=== PATIENT | female | born 1955 | race Caucasian/White ===

== ENCOUNTER 2019-04-19 09:44 | Inpatient (IN) | payer BC ==
[2019-04-19] MEDS ORDERED: HYDROcodone/Acetaminophen 5/325 mg Tablet PO PRN ×2 (12:26)
[2019-04-19] MEDS ORDERED: Acetaminophen 325 MG TAB PO PRN (12:26)
[2019-04-19] MEDS ORDERED: Ondansetron ODT 4 MG TAB SL PRN (12:26)
[2019-04-19] MEDS ORDERED: Ondansetron PF 4 MG/2 ML Vial IVP PRN (12:26)
[2019-04-19] MEDS ORDERED: Labetalol HCl 100 MG/20 ML VIAL SLOW IVP PRN ×2 (13:01→14:16)
[2019-04-19] MEDS: Sodium Chloride 0.9% 1,000 ML IV SCH ×2 (13:04→20:02)
[2019-04-19 13:10] VITALS: BMI 26.3
[2019-04-19 13:37] LABS: #Basophils 0.1 thou/uL (0.0-0.2); #Eosinphils 0.1 thou/uL (0.0-0.7); #Lymphocytes 2.2 thou/uL (1.20-3.40); #Monocytes 0.3 thou/uL (0.11-0.59); #Neutrophils 3.8 thou/uL (1.40-6.50); %Basophils 1.3 % (0.0-1.0); %Eosinophils 1.1 % (0.0-10.0); %Monocytes 5.2 % (0.0-10.0); %Neutrophils 58.4 % (42.0-75.0); Hemoglobin 14.1 g/dL (12.0-16.0); Mean Corpuscular HGB CONC 33.2 g/dL (32.0-36.0); Mean Corpuscular Hemoglobin 30.2 pg (27.0-31.0); Mean Platelet Volume 8.4 fL (7.4-10.4); Platelet Count 311 thou/uL (130-400); RBC Distribution Width 12.3 % (11.5-14.5); Red Blood Cell (RBC) Count 4.67 mill/uL (4.20-5.40); White Blood Cell (WBC) Count 6.5 thou/uL (4.8-10.8)
[2019-04-19 14:03] LABS: Anion Gap 11 mmol/L (10-20); BUN (Urea Nitrogen) 14 mg/dL (9.8-20.1); CRP (Inflammatory) 2.18 mg/dL (= or < 0.5); Calc. Creatinine Clearance 93 mL/min (70-130); Calcium 9.6 mg/dL (7.8-10.44); Carbon Dioxide 29 mmol/L (23-31); Chloride 106 mmol/L (98-107); Estimated GFR-MDRD 82; Glucose 93 mg/dL (80-115); Potassium 3.3 mmol/L (3.5-5.1); Sodium 143 mmol/L (136-145)
[2019-04-19] MEDS ORDERED: hydrALAZINE 20 MG/ML VIAL SLOW IVP PRN (14:16)
[2019-04-19] MEDS ORDERED: cloNIDine 0.1 MG TAB PO PRN ×2 (14:16→21:06)
[2019-04-19] MEDS ORDERED: Dextrose 50% Abboject 50 ML SYRINGE SLOW IVP PRN (14:17)
[2019-04-19] MEDS ORDERED: Dextrose 5% in Water 1,000 ML IV PRN (14:17)
[2019-04-19] MEDS ORDERED: HumaLOG 300 UNITS/3 ML VIAL SC PRN ×2 (14:17)
[2019-04-19] MEDS ORDERED: Lidocaine 1% PF 5 ML VIAL ONE (14:25)
[2019-04-19] MEDS ORDERED: PROPOFOL 200 MG/20 ML VIAL ONE (14:25)
[2019-04-19] MEDS ORDERED: EPHEDRINE 25 MG/5 ML SYRINGE ONE (14:25)
[2019-04-19] MEDS ORDERED: Dexamethasone 20 MG/5 ML VIAL ONE (14:25)
[2019-04-19] MEDS ORDERED: Ondansetron PF 4 MG/2 ML Vial ONE (14:25)
[2019-04-19] MEDS ORDERED: Vancomycin HCl 1.25 GM in Sodium Chloride 0.9% 250 ML 250 ML IVPB SCH (14:30)
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
[2019-04-19] MEDS ORDERED: Thrombin 5000 UNITS/5 ML VIAL ONE (16:59)
[2019-04-19] MEDS ORDERED: Sodium Chloride 0.9% 10 ML ONE (16:59)
[2019-04-19] MEDS ORDERED: Bupivacaine PF 0.5% 30 ML VIAL ONE (16:59)
[2019-04-19] MEDS ORDERED: Bacitracin Zinc Ointment 30 gm TUBE ONE (16:59)
[2019-04-19] MEDS ORDERED: Sodium Chloride 0.9% 20 ML ONE (17:00)
[2019-04-19] MEDS ORDERED: Fentanyl 100 MCG/2 ML VIAL ONE (17:21)
[2019-04-19] MEDS ORDERED: Promethazine HCl 25 MG/ML VIAL IM PRN ×2 (18:42→18:52)
[2019-04-19] MEDS ORDERED: Ondansetron PF 4 MG/2 ML Vial IV PRN (18:52)
[2019-04-19] MEDS ORDERED: Fentanyl 100 MCG/2 ML VIAL SLOW IVP PRN (18:52)
[2019-04-19] MEDS ORDERED: Milk Of Magnesia 30 ML UDCUP PO PRN (18:52)
[2019-04-19] MEDS ORDERED: Bisacodyl 10 MG SUPP PR PRN (18:52)
[2019-04-19] MEDS ORDERED: Meperidine HCl/PF 25 MG/ML VIAL IM PRN (18:58)
[2019-04-19] MEDS ORDERED: Communication Order-Pharmacy FS SCH (19:00)
[2019-04-19] MEDS: Acetaminophen/Codeine 30-300mg Tablet PO PRN (20:02)
[2019-04-19] MEDS: Aspirin 81 mg Enteric Coated Tablet PO SCH (20:02)
[2019-04-19] MEDS ORDERED: TETANUS AND DIPHTHERIA TOX/PF 0.5 ML DISP.SYRIN IM SCH (21:00)
[2019-04-19] MEDS ORDERED: diphenhydrAMINE 25 MG CAP PO PRN (21:06)
[2019-04-19 21:41] LABS: #Lymphocytes 0.7 thou/uL (1.20-3.40); #Monocytes 0.1 thou/uL (0.11-0.59); #Neutrophils 7.1 thou/uL (1.40-6.50); %Basophils 0.4 % (0.0-1.0); %Eosinophils 0.2 % (0.0-10.0); %Lymphocytes 9.3 % (21.0-51.0); %Monocytes 0.9 % (0.0-10.0); %Neutrophils 89.1 % (42.0-75.0); Hemoglobin 13.3 g/dL (12.0-16.0); Mean Corpuscular HGB CONC 33.5 g/dL (32.0-36.0); Mean Corpuscular Hemoglobin 30.6 pg (27.0-31.0); Mean Corpuscular Volume 91.3 fL (78.0-98.0); Mean Platelet Volume 8.6 fL (7.4-10.4); Platelet Count 271 thou/uL (130-400); RBC Distribution Width 12.3 % (11.5-14.5); Red Blood Cell (RBC) Count 4.34 mill/uL (4.20-5.40)
[2019-04-19] MEDS: Ketorolac Tromethamine 30 MG/ML VIAL IVP SCH (23:41)
[2019-04-20] MEDS: Ketorolac Tromethamine 30 MG/ML VIAL IVP SCH ×4 (05:06→23:47)
[2019-04-20] MEDS: Acetaminophen/Codeine 30-300mg Tablet PO PRN ×3 (05:11→18:19)
[2019-04-20 05:48] LABS: #Lymphocytes 0.9 thou/uL (1.20-3.40); #Monocytes 0.2 thou/uL (0.11-0.59); #Neutrophils 3.5 thou/uL (1.40-6.50); %Basophils 0.6 % (0.0-1.0); %Eosinophils 0.2 % (0.0-10.0); %Lymphocytes 18.6 % (21.0-51.0); %Monocytes 3.7 % (0.0-10.0); Hemoglobin 12.9 g/dL (12.0-16.0); Mean Corpuscular HGB CONC 33.7 g/dL (32.0-36.0); Mean Corpuscular Hemoglobin 30.9 pg (27.0-31.0); Mean Corpuscular Volume 91.8 fL (78.0-98.0); Mean Platelet Volume 8.9 fL (7.4-10.4); Platelet Count 293 thou/uL (130-400); RBC Distribution Width 12.3 % (11.5-14.5); Red Blood Cell (RBC) Count 4.18 mill/uL (4.20-5.40); White Blood Cell (WBC) Count 4.6 thou/uL (4.8-10.8)
[2019-04-20] MEDS ORDERED: Vancomycin HCl 1 GM in Premix Bag 1 BAG IVPB SCH (06:00)
[2019-04-20 06:05] LABS: ALT (SGPT) 30 U/L (8-55); AST (SGOT) 16 U/L (5-34); Albumin 3.9 g/dL (3.4-4.8); Alkaline Phosphatase 62 U/L (40-110); Anion Gap 12 mmol/L (10-20); BUN (Urea Nitrogen) 12 mg/dL (9.8-20.1); Bilirubin, Total 0.4 mg/dL (0.2-1.2); Calc. Creatinine Clearance 97 mL/min (70-130); Calcium 8.7 mg/dL (7.8-10.44); Carbon Dioxide 22 mmol/L (23-31); Chloride 110 mmol/L (98-107); Estimated GFR-MDRD 86; Globulin 2.3 g/dL (2.4-3.5); Glucose 117 mg/dL (80-115); Protein, Total 6.2 g/dL (6.0-8.3); Sodium 140 mmol/L (136-145)
[2019-04-20] MEDS: Aspirin 81 mg Enteric Coated Tablet PO SCH ×2 (07:59→21:19)
--- NOTE | 2019-04-20 08:09 | OP ---
DATE OF PROCEDURE: 04/19/2019 PREOPERATIVE DIAGNOSIS: Left palmar wound with necrosis. POSTOPERATIVE DIAGNOSIS: Left palmar wound with necrosis. PROCEDURE PERFORMED: Debridement of wound, left palm, wide, deep, depth down to include the neurovascular bundle of the ulnar nerve. SPECIMEN: Culture of necrotic wound and swab culture of the wound exudate. FINDINGS: Grossly contaminated wound with undermined and particle contamination. INDICATIONS: The patient with a wound to the right hand. It showed evidence of erythema and gross infection. Also showed marked amount of wound necrosis and debridement to whatever depth and size needed to remove the necrotic tissue was indicated. DESCRIPTION OF PROCEDURE: After successful general endotracheal anesthesia, the limb was prepped and draped. The tourniquet was inflated, which remained so at 250 mmHg pressure after exsanguination of limb for 9 minutes. Incision was extended 1.5 cm distal and 2.5 cm proximally, angling it ulnarly so we could visualize the proximal portion of the ulnar neurovascular bundle. We then followed this across Guyon's canal subcutaneously, extending the incision 2 cm distal and we found gross necrosis, some particle of plant-like fibers in the wound, fat was denuded and there was no gross exudate. We then did the same type of procedure on the radial side of wound from the midportion distally and we found what we suspected and that was gross contamination of wound with early abscess formation. We then peeled the incision proximally and distally back undermining enough so we could visualize everything down to the fascia. We saw along the palmar fascia was not violated on the radial half, but on the ulnar half, it was covered and what appeared to be diminished and we decided to after debridement and irrigation to all. The patient then had gross contaminated tissue been excised, sent for culture as well as a swab and then we irrigated with normal saline and 3 L of Pulsavac pressure. The patient then had a normal saline wet-to-dry packing placed in the wound after we had visualized neurovascular bundle and worked around and saw no gross contamination. She then left the operating room with a normal saline soaked gauze and no evidence of anesthetic or operative complication. Job ID: [id number]
[2019-04-20] MEDS ORDERED: Lisinopril 10 MG TAB PO SCH (09:03)
[2019-04-20] MEDS ORDERED: Amlodipine 10 MG TAB PO SCH (09:04)
[2019-04-20] MEDS: Amlodipine 10 MG TAB PO SCH (09:13)
[2019-04-20] MEDS: Lisinopril 10 MG TAB PO SCH (09:14)
--- NOTE | 2019-04-20 14:07 | PDOC.HOSPP ---
- Subjective Encounter Date: 04/20/19 Encounter Time: 14:05 Subjective: Ms. Dominguez was seen today in follow-up cellulitis of the right hand. She does not have any new complaints. - Objective Vital Signs & Weight: Vital Signs (12 hours) Temp Pulse Resp BP BP Pulse Ox 04/20/19 11:20 96 04/20/19 11:08 97.9 F 88 15 152/76 H 96 04/20/19 09:14 165/80 H 04/20/19 09:13 165/80 H 04/20/19 08:00 182/75 H 95 04/20/19 07:25 97.9 F 75 16 182/75 H 95 04/20/19 04:00 97.7 F 78 18 154/82 H 96 Weight Weight 163 lb 2.273 oz I&O: 04/19/19 04/20/19 04/21/19 06:59 06:59 06:59 Intake Total 1140 Balance 1140 Result Diagrams: 04/20/19 04:58 04/20/19 04:58 Additional Labs: Accuchecks 04/20/19 04/20/19 04/19/19 11:07 05:31 20:05 POC Glucose 88 118 H 110 04/19/19 17:37 POC Glucose 93 Hospitalist ROS - Medication Medications: Active Medications Generic Name Dose Route Start Last Admin Trade Name Freq PRN Reason Stop Dose Admin Acetaminophen/Codeine Phosphate 1 tab 04/19/19 18:52 04/20/19 09:13 Tylenol #3 PO 1 tab Q4H PRN Administration Moderate Pain (4-6) Amlodipine Besylate 10 mg 04/20/19 09:00 04/20/19 09:13 Norvasc PO 10 mg DAILY ZAFAR Administration Aspirin 81 mg 04/19/19 21:00 04/20/19 07:59 Ecotrin PO 81 mg BID ZAFAR Administration Clonidine 0.1 mg 04/19/19 21:06 04/20/19 08:00 Catapres PO 0.1 mg Q4H PRN Administration SBP Greater Than 180 Diphenhydramine HCl 25 mg 04/19/19 21:06 04/19/19 21:18 Benadryl PO 25 mg Q4H PRN Administration Itching Hydralazine HCl 10 mg 04/19/19 14:16 04/19/19 21:16 Apresoline SLOW IVP 10 mg Q4H PRN Administration SBP > 180 and HR < 70 Ketorolac Tromethamine 15 mg 04/19/19 23:59 04/20/19 11:51 Toradol IVP 04/20/19 23:59 15 mg Q6HR ZAFAR Administration Lisinopril 10 mg 04/20/19 09:00 04/20/19 09:14 Zestril PO 10 mg DAILY ZAFAR Administration - Exam Eye: PERRL Eye - other findings: + bruising on the left side of her face Heart: RRR, no murmur, no gallops, no rubs Respiratory: CTAB, no wheezes, no rales, no ronchi, normal chest expansion Gastrointestinal: soft, non-tender, non-distended, normal bowel sounds Extremities: no edema (+ right hand is dressed) Hosp A/P (1) Cellulitis of right hand Code(s): L03.113 - CELLULITIS OF RIGHT UPPER LIMB Status: Acute (2) HTN (hypertension) Code(s): I10 - ESSENTIAL (PRIMARY) HYPERTENSION Status: Chronic (3) Hypertensive urgency Code(s): I16.0 - HYPERTENSIVE URGENCY Status: Resolved - Plan * Hypertensive Urgency- resolved * HTN- blood pressure is better- continue with her home medications * Discussed in great detail the dangers of missing her medications, especially Clonidine ( with regard to rebound hypertension). She voiced understanding, but says that this medication is one of the only ones which helped her blood pressure. * Cellulitis of the right hand- continue antibiotics per Dr. Dickens
[2019-04-21] MEDS: Acetaminophen/Codeine 30-300mg Tablet PO PRN ×3 (06:18→16:58)
[2019-04-21] MEDS: Lisinopril 10 MG TAB PO SCH (08:39)
[2019-04-21] MEDS: Aspirin 81 mg Enteric Coated Tablet PO SCH (08:39)
[2019-04-21] MEDS: Amlodipine 10 MG TAB PO SCH (08:39)
[2019-04-21] MEDS: Morphine 4 MG/ML VIAL SLOW IVP PRN ×2 (08:40→16:59)
[2019-04-21 15:21] VITALS: BP 145/73; TEMP 98.3
--- NOTE | 2019-04-22 10:10 | PQF ---
SAL VILLAVICENCIO DARRYL [id number] [facility] A- [id number] CLINICAL DOCUMENTATION CLARIFICATION FORM: POST DISCHARGE Addendum to original discharge summary date: ____ Late entry note date: __ DATE:04/22/2019 ATTN: OMKAR ARGUELOL Please exercise your independent, professional judgment in responding to the clarification form. Clinical indicators are provided on the bottom of this form for your review Please check appropriate box(s): [ ] Excisional Debridement: [ ] Excised [ ] Cut away [ ] Other: Depth / layer: (deepest layer of debridement): [ ] Skin[ ] SubQ Tissue [ ] Fascia [ ] Muscle [ ] Tendon [ ] Bone Appearance of wound: (e.g., down to fresh bleeding tissue, etc.)___ Margins: (please specify): / x x Instruments used: [ ] Scissors [ ] Scalpel [ ] Curette [ ] Soft tissue clipper [ ] Other: [ ] Non-excisional Debridement: (Removal by flushing, brushing, chemical, or washing) Depth / layer: (deepest layer of debridement): [ ] Skin[ ] Subcutaneous [ ] Fascia [ ] Muscle [ ] Tendon [ ] Bone [ ] Other procedure diagnosis [ ] Unable to determine For continuity of documentation, please document condition throughout progress notes and discharge summary. Thank You. CLINICAL INDICATORS - SIGNS / SYMPTOMS / LABS Procedure performed:Debridement of wound ,eft palm, wide , deep, depth down to include the neurovascular bundle of the ulnar nerve-Documented in Op note on by Omkar Arguello MD Findings:Grossly contaminated wound with undermined and particle contamination- Documented in Op note on 04/19 by Omkar Arguelol MD Extending the incision 2 cm distal and we found gross necrosis -Documented in Op note on 04/19 by Omkar Arguello MD Could visualize everything down to the fascia. we saw alone the palmar fascia was not violated on the radial half , but on the ulna half, It was covered and what appeared to be diminished and we decided to after debridement and irrigation to all-Documented in Op note on 04/19 by Omkar Arguello MD RISK FACTORS Grossly contaminated wound with undermined and particle contamination- Documented in Op note on 04/19 by Omkar Arguello MD TREATMENTS: Irrigated with normal saline and 3 l of Pulsavac pressure -Documented in Op note on 04/19 by Omkar Arguello MD Packing placed in the wound -Documented in Op note on 04/19 by Omkar Arguello MD [employer] Win[employer] Viewer (This form is maintained as a part of the permanent medical record) 2014 [employer]. All Rights Reserved [email or web address] [phone] MTDD
== END 2019-04-21 19:35 | disposition home or self-care (01) | DRG 580 ==
LOC: ERS 09:44 → SURG A 10:00 → OBSVTOIN 18:52
PROVIDERS: ADMIT Orthopaedic Surgery Hand Surgery; ATTEND Orthopaedic Surgery Hand Surgery
PROC: 0JBK0ZZ Excision of Left Hand Subcutaneous Tissue and Fascia, Open Approach (ICD-10-PCS; principal; 2019-04-19)
DX: L03.113 Cellulitis of right upper limb (principal); I96 Gangrene, not elsewhere classified; I10 Essential (primary) hypertension; I16.0 Hypertensive urgency; Z90.49 Acquired absence of other specified parts of digestive tract; Z83.3 Family history of diabetes mellitus; Z82.3 Family history of stroke; Z82.49 Family history of ischemic heart disease and other diseases of the circulatory system
CPT/HCPCS: 12002; 36415; 36416; 70450; 70486; 71045; 78452; 80048; 80053; 80061; 82553; 83735; 83880; 84443; 84484; 85025; 86140; 87070; 87077; 87186; 87205; 93017; 94760; 96361; 96365; 96375; 96376; 99284; A9500; G0378; J0153; J0360; J1100; J1885; J2001; J2270; J2405; J2550; J2704; J3010; J3370; J3490; Q0162; Q0163; S0020

== ENCOUNTER 2019-04-26 12:32 | Day surgery (SDC) | payer BC ==
[~2019-04-26 12:32] MED LIST: Dexamethasone 20 MG/5 ML VIAL ONE; EPHEDRINE 25 MG/5 ML SYRINGE ONE; Ketorolac Tromethamine 30 MG/ML VIAL ONE; Ondansetron PF 4 MG/2 ML Vial ONE; PROPOFOL 200 MG/20 ML VIAL ONE
[2019-04-26] MEDS ORDERED: Sodium Chloride 0.9% 10 ML ONE ×2 (14:16→16:11)
[2019-04-26] MEDS ORDERED: CEFAZOLIN 1 GM VIAL ONE (14:23)
[2019-04-26] MEDS ORDERED: Sodium Chloride 0.9% 100 ML ONE (14:23)
[2019-04-26 15:13] LABS: Mean Corpuscular HGB CONC 33.9 g/dL (32.0-36.0); Mean Corpuscular Hemoglobin 30.9 pg (27.0-31.0); Mean Platelet Volume 8.1 fL (7.4-10.4); Platelet Count 344 thou/uL (130-400); Red Blood Cell (RBC) Count 4.52 mill/uL (4.20-5.40); White Blood Cell (WBC) Count 7.3 thou/uL (4.8-10.8)
[2019-04-26] MEDS ORDERED: Bupivacaine PF 0.5% 30 ML VIAL ONE (16:10)
[2019-04-26] MEDS ORDERED: Thrombin 5000 UNITS/5 ML VIAL ONE (16:11)
[2019-04-26] MEDS ORDERED: Bacitracin Zinc Ointment 30 gm TUBE ONE (16:11)
[2019-04-26] MEDS ORDERED: Fentanyl 100 MCG/2 ML VIAL ONE ×2 (17:22→19:30)
--- NOTE | 2019-04-27 01:18 | OP ---
DATE OF PROCEDURE: 04/26/2019 PREOPERATIVE DIAGNOSES: Right palmar 7 cm wound with 2 cm central defect from soft tissue loss after prior debridement approximately 1 week ago, previously treated with dressing changes, antibiotics and observation after debridement. POSTOPERATIVE DIAGNOSES: Right palmar 7 cm wound with 2 cm central defect from soft tissue loss after prior debridement approximately 1 week ago, previously treated with dressing changes, antibiotics and observation after debridement with total 7 cm wound with 2 cm defect in the central portion. PROCEDURE PERFORMED: 1. Closure of 7 cm wound. 2. 2 x 1 cm full-thickness skin graft from the antecubital fossa, same site. 3. Debridement of wound, right palmar wrist. SPECIMEN REMOVED: None. ESTIMATED BLOOD LOSS: 10 mL. TOURNIQUET TIME: 0. No infection. INDICATION: The patient returned for staged wound management after previous debridement for an infected necrotic wound. She had been on antibiotics appropriate for the cultures and had dressing changes x2 in the office, which last 1 showed no infection. DESCRIPTION OF PROCEDURE: After successful general endotracheal anesthesia, the limb was prepped and draped. We then evaluated the wound without exsanguination of the limb. We debrided the wound edges using tenotomy scissors and Graves blade after looking deep and using the curette to also debride the wound edges. There was no exposure of the neurovascular bundle either the ulnar or median. There was adequate fat for the center portion wound where we once debrided, there was a 2 x 0.8 cm defect. We then irrigated with 1 L of normal saline and Pulsavac pressure with antibiotics inside. We obtained hemostasis. We then closed the wound using a 3-0 suture in a vertical mattress pattern proximal to the open area and 4-0 nylon with a horizontal mattress distal to the 2 cm defect centrally. We then obtained hemostasis. We harvested the full-thickness skin graft, defatted it and then placed it with bolster sutures in all 4 corners of this 2 x 1 cm wound. There was enough slack on the graft to place in the crater against the underlying fat. We then after placing 4 bolster sutures, ran a 5-0 chromic suture around the edges of the graft and then placed bacitracin, Adaptic, mineral-oil soaked gauze and tied this with 2 sutures, 1 in each caudal direction. We had excellent bolster effect. We placed Adaptic and bacitracin in the remainder of the wound, covered this with bulky hand dressing and Kerlix, and then turned attention to the proximal wound. We obtained hemostasis here. We closed the deep dermis with a running four Monocryl, epidermis closure with fibrin glue (Dermabond), and then waited 3 minutes until it dried and covered this with a dry Adaptic, 4x4s and Kerlix were placed here and then we connected the 2 with 4-inch Mayank wrap. The patient left the operating room without evidence of anesthetic operative complication. Job ID: [id number]
--- NOTE | 2019-04-27 15:06 | EKG ---
Test Reason : STAT CP Blood Pressure : / mmHG Vent. Rate : 081 BPM Atrial Rate : 081 BPM P-R Int : 170 ms QRS Dur : 096 ms QT Int : 388 ms P-R-T Axes : 053 016 033 degrees QTc Int : 450 ms Normal sinus rhythm Normal ECG Confirmed by SONIDO TANG ([id number]) on 04/27/2019 3:06:11 PM Referred By: Altagracia ARGUELLO Confirmed By:SONIDO TANG
== END 2019-04-26 22:15 | disposition home or self-care (01) ==
LOC: SDC 12:32
PROVIDERS: ATTEND Orthopaedic Surgery Hand Surgery
PROC: 0HRFX73 Replacement of Right Hand Skin with Autologous Tissue Substitute, Full Thickness, External Approach (ICD-10-PCS; principal; 2019-04-26)
DX: S61.401A Unspecified open wound of right hand, initial encounter (principal); X58.XXXA Exposure to other specified factors, initial encounter
CPT/HCPCS: 85027; 85652; 93005; 93010; J0690; J1100; J1885; J2405; J2704; J3010; J3490; S0020

== ENCOUNTER 2020-01-02 23:01 | Emergency (ER) | payer BC ==
[2020-01-02] MEDS ORDERED: Morphine 4 MG/ML VIAL ONE (23:22)
[2020-01-02] MEDS ORDERED: Lidocaine 1% w/Epinephrine 1:100K 20 ML VIAL ONE (23:25)
--- NOTE | 2020-01-03 06:58 | RAD ---
LEFT KNEE 4 VIEWS: Date: 01/02/2020 HISTORY: Laceration to knee status post fall. FINDINGS: Soft tissue injury is seen. No joint effusion or fracture. No air seen within the joint space. IMPRESSION: No evidence of fracture or joint effusion. POS: OFF
--- NOTE | 2020-01-03 06:59 | RAD ---
RIGHT WRIST 3 VIEWS: Date: 01/02/2020 HISTORY: Wrist injury status post fall. FINDINGS: There are marked arthritic changes of the first carpometacarpal joint space and triscaphe joint level . The bones appear demineralized. There is cystic appearing change within the hamate. There is no faby dence for fracture. IMPRESSION: No evidence of fracture. POS: OFF
== END 2020-01-03 00:29 | disposition home or self-care (01) ==
LOC: ERS 23:01
DX: S81.012A Laceration without foreign body, left knee, initial encounter (principal); M25.531 Pain in right wrist; I10 Essential (primary) hypertension; F32.9 Major depressive disorder, single episode, unspecified; F41.9 Anxiety disorder, unspecified; W01.198A Fall on same level from slipping, tripping and stumbling with subsequent striking against other object, initial encounter
CPT/HCPCS: 12002; 96372; J2270

== ENCOUNTER 2024-01-19 14:33 | Outpatient (CLI) | payer MEDICARE | END 2024-01-19 14:34 | disposition home or self-care (01) | LOC: ULT 14:33 | PROVIDERS: ATTEND Internal Medicine Nephrology | DX: N18.30 Chronic kidney disease, stage 3 unspecified (principal); K80.20 Calculus of gallbladder without cholecystitis without obstruction | CPT/HCPCS: 76770; 93975 ==

== ENCOUNTER 2025-01-15 12:14 | Emergency (ER) | payer MEDICARE | END 2025-01-15 12:50 | disposition home or self-care (01) | LOC: ERS 12:14 | DX: I10 Essential (primary) hypertension (principal); R23.2 Flushing; I25.2 Old myocardial infarction; R29.700 NIHSS score 0; Z86.73 Personal history of transient ischemic attack (TIA), and cerebral infarction without residual deficits; Z79.899 Other long term (current) drug therapy | CPT/HCPCS: 99282 ==